=== PATIENT | female | born 1965 | race Caucasian/White ===

== ENCOUNTER 2020-12-05 22:29 | Emergency (ER) | payer OTHER ==
[~2020-12-05] VITALS: Ht 165.1 cm; Wt 49.9 kg
[2020-12-05] MEDS ORDERED: LEVETIRACETAM1000 MG PO (23:09)
[2020-12-05 23:44] LABS: ABSOLUTE BASOPHILS 0.1 thou/uL (0.0-0.2); ABSOLUTE EOSINOPHILS 0.1 thou/uL (0.0-0.7); ABSOLUTE LYMPHOCYTES 1.3 thou/uL (0.8-5.3); ABSOLUTE MONOCYTES 0.6 thou/uL (0.0-1.2); BASOPHILS 1.5 %; EOSINOPHILS 1.5 %; HEMATOCRIT 41.6 % (37.0-47.0); HEMOGLOBIN 14.3 gm/dL (12.0-15.0); LYMPHOCYTES 16.5 %; MCH 31.1 pg (26.0-34.0); MCHC 34.3 g/dL (28.0-37.0); MCV 90.6 fL (80.0-100.0); MONOCYTES 7.2 %; MPV 7.9 fl. (7.2-11.1); NUCLEATED RBCS 0 /100WBC; PLATELET COUNT* 314 thou/uL (150-400); POLYS 73.3 %; RBC 4.59 mil/uL (4.20-5.00); WBC 8.2 thou/uL (4.0-11.0)
[2020-12-05 23:49] LABS: CALCIUM 8.7 mg/dL (8.5-10.1); CREATININE 0.6 mg/dL (0.6-1.3); POTASSIUM 3.7 mmol/L (3.5-5.1)
[2020-12-05 23:59] LABS: ALBUMIN 3.7 g/dL (3.4-5.0); TOTAL BILIRUBIN 0.2 mg/dL (<0.1-1.0); TOTAL PROTEIN 7.5 g/dL (6.4-8.2)
[2020-12-06 01:05] LABS: URINE BILIRUBIN NEGATIVE (Negative); URINE BLOOD NEGATIVE (Negative); URINE CLARITY CLEAR; URINE COLOR YELLOW; URINE GLUCOSE-RANDOM NEGATIVE (Negative); URINE KETONES NEGATIVE (Negative); URINE LEUKOCYTES-REFLEX NEGATIVE (Negative); URINE NITRITE-REFLEX NEGATIVE (Negative); URINE PROTEIN NEGATIVE (Negative); URINE UROBILINOGEN 0.2 E.U./dl (0.2-1.0)
[2020-12-06] MEDS ORDERED: LEVETIRACETAM1000 MG PO (01:30)
[2020-12-06 01:40] VITALS: BP 104/53
--- NOTE | 2020-12-06 16:28 | EKG ---
[place] [address] ELECTROCARDIOGRAM REPORT Name: EVELINA GARZON Room: [facility]#: [id number] Admission: 12/05/20 Attend Phys: Discharge: 12/06/20 Date of : 67 Date of Service: 12/05/202306 Report #: [id number] THIS REPORT FOR: //name// [facility] ED Test Date: 2020-12-05 Test Time: 23:07:05 Pat Name: EVELINA GARZON Department: Room: Gender: [employer]: [place] : 1965 Requested By: Kerry Boggs Order Number: [id number] Gwendolyn MD: Roman Diaz Measurements Intervals [place] Rate: 90 P: 85 [place]: 129 QRS: 104 QRSD: 85 T: 71 QT: 360 QTc: 441 Interpretive Statements Sinus rhythm Right axis deviation No previous ECG available for comparison Electronically Signed On 12-06-2020 16:27:57 CDT by Roman Diaz [email or web address] <ELECTRONICALLY SIGNED> By: Roman Diaz MD, [facility] 12/06/20 1627 06 06 oRman Diaz MD, FACC /EPI
== END 2020-12-06 01:41 | disposition home or self-care (01) ==
LOC: M.ERS 22:29
PROVIDERS: Emergency Medicine
DX: R56.9 Unspecified convulsions (principal); J45.909 Unspecified asthma, uncomplicated; Z88.5 Allergy status to narcotic agent; Z88.6 Allergy status to analgesic agent; Z88.0 Allergy status to penicillin